=== PATIENT | male | born 2000 | race African-American/Black ===

== ENCOUNTER 2019-06-09 10:51 | Emergency (ER) | payer OTHER ==
[2019-06-09 10:59] VITALS: BP 123/85; PULSE 89; RESP 18; TEMP 97.9
--- NOTE | 2019-06-09 11:13 | ED ---
Wound/Laceration HPI - General Chief Complaint: Wound/Laceration Stated Complaint: Foot laceration Time Seen by Provider: 06/09/19 11:01 Source: patient, EMS, RN notes reviewed Mode of arrival: EMS Limitations: no limitations - History of Present Illness Initial Comments: 18-year-old male presents emergency from chief complaint of right foot laceration. Patient states that something broken in his house and states that he stepped on a piece of glass. Patient states his tetanus is up-to-date. Patient denies paresthesias. Patient states that the bleeding has stopped. Patient offers no other complaints. - Related Data Previous Rx's Medication Instructions Recorded Cephalexin [Keflex] 500 mg PO Q8HR #21 cap 06/09/19 Allergies Allergy/AdvReac Type Severity Reaction Status Date / Time No Known Allergies Allergy Verified 06/09/19 11:20 Review of Systems ROS Statement: Those systems with pertinent positive or pertinent negative responses have been documented in the HPI. ROS Other: All systems not noted in ROS Statement are negative. Past Medical History Past Medical History: No Reported History History of Any Multi-Drug Resistant Organisms: None Reported Past Surgical History: No Surgical Hx Reported Past Psychological History: ADD/ADHD Smoking Status: Never smoker Past Alcohol Use History: None Reported Past Drug Use History: None Reported General Exam Limitations: no limitations General appearance: alert, in no apparent distress Head exam: Present: atraumatic, normocephalic, normal inspection Neck exam: Present: normal inspection, full ROM. Absent: tenderness, meningismus, lymphadenopathy Respiratory exam: Present: normal lung sounds bilaterally. Absent: respiratory distress, wheezes, rales, rhonchi, stridor Cardiovascular Exam: Present: regular rate, normal rhythm, normal heart sounds. Absent: systolic murmur, diastolic murmur, rubs, gallop, clicks Extremities exam: Present: other (Right foot there is a superficial 1 cm laceration with no active bleeding neurovascular intact there is no localized tenderness) Skin exam: Present: warm, dry, intact, normal color. Absent: rash Course Vital Signs 06/09/19 10:52 Temperature 97.9 F Pulse Rate 89 Respiratory 18 Rate Blood Pressure 123/85 O2 Sat by Pulse 99 Oximetry Medical Decision Making - Medical Decision Making 18-year-old male presented for foot laceration. X-rays are negative for fo that there is a risk for infection reading return parameters were discussed.reign body, there is no active bleeding the wound was cleaned, bacitracin applied, patient be discharged and antibiotics we discussed there is no need for closure of the laceration Disposition Clinical Impression: Laceration of right foot Disposition: HOME SELF-CARE Condition: Stable Instructions (If sedation given, give patient instructions): Laceration (ED) Additional Instructions: Please return to the Emergency Department if symptoms worsen or any other concerns. Prescriptions: Cephalexin [Keflex] 500 mg PO Q8HR #21 cap Is patient prescribed a controlled substance at d/c from ED?: No Referrals: None,Stated [Primary Care Provider] - 1-2 days Time of Disposition: 11:28
--- NOTE | 2019-06-09 11:20 | XR ---
EXAMINATION TYPE: XR foot complete RT DATE OF EXAM: 06/09/2019 CLINICAL HISTORY: Possible foreign body/glass near the first or second mid metatarsal. TECHNIQUE: Frontal, lateral, and oblique images of the right foot are obtained. COMPARISON: None FINDINGS: There is no acute fracture/dislocation evident in the right foot. The joint spaces in the right foot appear within normal limits. The overlying soft tissue appears unremarkable. No radiopaq ue foreign body. IMPRESSION: There is no acute fracture or dislocation in the right foot. No radiopaque foreign body.
== END 2019-06-09 11:44 | disposition home or self-care (01) ==
LOC: EC 10:51
DX: S91.311A Laceration without foreign body, right foot, initial encounter (principal); W25.XXXA Contact with sharp glass, initial encounter
CPT/HCPCS: 99283

== ENCOUNTER 2019-08-13 15:10 | Emergency (ER) | payer OTHER ==
[2019-08-13] MEDS ORDERED: ACETAMINOPHEN TAB 325 MG TAB PO STA (15:33)
[2019-08-13] MEDS ORDERED: IBUPROFEN 400 MG TAB PO STA (15:33)
--- NOTE | 2019-08-13 16:01 | XR ---
EXAMINATION TYPE: XR chest 2V DATE OF EXAM: 08/13/2019 COMPARISON: NONE HISTORY: Chest pain TECHNIQUE: Frontal and lateral views of the chest are obtained. FINDINGS: There is no focal air space opacity. No evidence for pneumothorax. No pleural effusion. The cardiac silhouette size is within normal limits. The osseous structures are grossly intact. IMPRESSION: 1. No acute cardiopulmonary process.
--- NOTE | 2019-08-13 16:36 | ED ---
General Adult HPI - General Chief complaint: ENT Stated complaint: Sick Time Seen by Provider: 08/13/19 15:14 Source: patient, family, RN notes reviewed, old records reviewed Mode of arrival: ambulatory Limitations: no limitations - History of Present Illness Initial comments: 18-year-old male patient with no pertinent past medical history presents ED juan f complaint of approximately throat, waxing and waning cough congestion. Patient reports he is fully vaccinated. Denies any other complaints. Systemic: Pt denies fatigue, fever/chills, rash. Pt denies weakness, night sweats, weight loss. Neuro: Pt denies headache, visual disturbances, syncope or pre-syncope. HEENT: Pt denies ocular discharge or irritation, otalgia, rhinorrhea, or notable lymphadenopathy. Cardiopulmonary: Pt denies chest pain, SOB, heart palpitations, dyspnea on exertion. Abdominal/GI: Pt denies abdominal pain, n/v/d. : Pt denies dysuria, burning w/ urination, frequency/urgency. Denies new onset urinary or bowel incontinence. MSK: Pt denies myalgia, loss of strength or function in extremities. Neuro: Pt denies new onset weakness, paresthesias. - Related Data Home Medications Medication Instructions Recorded Confirmed No Known Home Medications 08/13/19 08/13/19 Allergies Allergy/AdvReac Type Severity Reaction Status Date / Time No Known Allergies Allergy Verified 08/13/19 16:19 Review of Systems ROS Statement: Those systems with pertinent positive or pertinent negative responses have been documented in the HPI. ROS Other: All systems not noted in ROS Statement are negative. Past Medical History Past Medical History: No Reported History History of Any Multi-Drug Resistant Organisms: None Reported Past Surgical History: No Surgical Hx Reported Past Psychological History: ADD/ADHD Smoking Status: Never smoker Past Alcohol Use History: None Reported Past Drug Use History: None Reported General Exam - General Exam Comments Initial Comments: Constitutional: NAD, AOX3, Pt has pleasant affect. HEENT: NC/AT, trachea midline, neck supple, no lymphadenopathy. Posterior pharynx non erythematous, without exudates. External ears appear normal, without discharge. TM pale caceres bilaterally. Mucous membranes moist. Eyes PERRLA, EOM intact. There is no scleral icterus. No pallor noted. Cardiopulmonary: RRR, no murmurs, rubs or gallops, no JVD noted. Lungs CTAB in anterior and posterior cool. No peripheral edema. Abdominal exam: Abdomen soft and non-distended. Abdomen non-tender to palpation in all 4 quadrants. Bowel sounds active in LLQ. No hepatosplenomegaly. No ecchymosis Neuro: CN II-XII grossly intact. No nuchal rigidity. No raccon eyes, no painter sign, no hemotympanum. No cervical spinal tenderness. MSK: No posterior calf tenderness bilaterally, homans sign negative bilaterally. Posterior tibialis and radial pulse +2 bilaterally. Sensation intact in upper and lower extremities. Full active ROM in upper and lower extremities, 5/5 stregnth. Limitations: no limitations Course Vital Signs 08/13/19 15:12 Temperature 97.5 F L Pulse Rate 69 Respiratory 20 Rate Blood Pressure 128/77 O2 Sat by Pulse 100 Oximetry Medical Decision Making - Medical Decision Making 18-year-old male patient with no pertinent past medical history presents ED chief complaint of approximately throat, waxing and waning cough congestion. Patient reports he is fully vaccinated. Denies any other complaints. Patient vital signs stable, afebrile. Physical exam did not display acute pathology. Strep negative. Chest x-ray negative. Patient likely experiencing viral syndrome. Patient discharged, follow-up with primary care provider. Return to ER if condition worsens. Case discussed with Dr. Blankenship. - Lab Data Lab Results 08/13/19 Range/Units 15:40 Group A Strep Rapid Negative (Negative) Disposition Clinical Impression: Viral syndrome Disposition: HOME SELF-CARE Condition: Stable Instructions (If sedation given, give patient instructions): Viral Syndrome (ED) Additional Instructions: Patient to adhere to previously discussed treatment plan and will take medication(s) as directed. Patient to follow up with PCP in 1-2 days. Patient to return to ED if symptoms do not improve. Follow-up with primary care provider, return to ER if condition worsens. Is patient prescribed a controlled substance at d/c from ED?: No Referrals: None,Stated [Primary Care Provider] - 1-2 days
[2019-08-13 16:52] VITALS: BP 119/75; PULSE 62; RESP 17; TEMP 97.4
== END 2019-08-13 16:51 | disposition home or self-care (01) ==
LOC: EC 15:10
DX: B34.9 Viral infection, unspecified (principal)
CPT/HCPCS: 71046; 87081; 87430; 99284

== ENCOUNTER 2020-09-18 12:22 | Emergency (ER) | payer OTHER ==
[2020-09-18 12:30] VITALS: RESP 18
--- NOTE | 2020-09-18 13:18 | ED ---
General Adult HPI - General Chief complaint: Back Pain/Injury Stated complaint: ABD pain Time Seen by Provider: 09/18/20 12:28 Source: patient, EMS Mode of arrival: EMS Limitations: no limitations - History of Present Illness Initial comments: 20-year-old male patient presents to the emergency department today for evaluation of rectal pain. Patient states that for the last couple of days he has been having intermittent sharp painful cramps to the rectal region. States her last bowel movement was on 09/14/2020. States that he does have issues with constipation sometimes. Denies any bleeding from the rectum. Denies any abdominal pain. Denies nausea or vomiting. Patient states that he did have a birthday republican on the third and he did have some alcohol and was dancing but denies any injuries or falls. Denies any pain radiating down his legs. Denies numbness or tingling to the lower extremities. Denies loss of bowel or bladder control. Patient denies any recent rash, fever, chills, cough, shortness of breath, chest pain, dizziness, weakness, hematuria, dysuria, urinary urgency, urinary frequency, headache, visual changes, or any other complaints. - Related Data Previous Rx's Medication Instructions Recorded Ibuprofen [Motrin] 800 mg PO TID PRN #30 tab 08/13/19 Allergies Allergy/AdvReac Type Severity Reaction Status Date / Time No Known Allergies Allergy Verified 09/18/20 12:30 Review of Systems ROS Statement: Those systems with pertinent positive or pertinent negative responses have been documented in the HPI. ROS Other: All systems not noted in ROS Statement are negative. Past Medical History Past Medical History: No Reported History History of Any Multi-Drug Resistant Organisms: None Reported Past Surgical History: No Surgical Hx Reported Past Psychological History: ADD/ADHD Smoking Status: Never smoker Past Alcohol Use History: None Reported Past Drug Use History: Marijuana General Exam Limitations: no limitations General appearance: alert, in no apparent distress, other (This is a well- developed, well-nourished adult male patient in no acute distress. Vital signs upon presentation are temperature 97.9F, pulse 91, respirations 18, blood pressure 121/65, pulse ox 97% on room air.) Respiratory exam: Present: normal lung sounds bilaterally. Absent: respiratory distress, wheezes, rales, rhonchi, stridor Cardiovascular Exam: Present: regular rate, normal rhythm, normal heart sounds. Absent: systolic murmur, diastolic murmur, rubs, gallop, clicks GI/Abdominal exam: Present: soft, normal bowel sounds. Absent: distended, tenderness, guarding, rebound, rigid Rectal exam: Present: normal inspection, fecal impaction. Absent: hemorrhoids, tenderness Neurological exam: Present: alert, oriented X3, CN II-XII intact Psychiatric exam: Present: normal affect, normal mood Skin exam: Present: warm, dry, intact, normal color. Absent: rash Course Vital Signs 09/18/20 09/18/20 12:28 14:05 Temperature 97.9 F 98.0 F Pulse Rate 91 79 Respiratory 18 18 Rate Blood Pressure 121/65 118/60 O2 Sat by Pulse 97 97 Oximetry Medical Decision Making - Medical Decision Making 20-year-old male patient presents to the emergency department today for evaluation of rectal pain and cramping. Physical examination revealed a soft nontender abdomen. He is afebrile, vital signs. Rectal exam no evidence for hemorrhoids. Internal exam did reveal large stool ball in the rectum. Patient was given an enema. Did have a large bowel movement while here. He is reporting improvement of symptoms, not currently having any pain. He'll be discharged with his primary care physician for recheck in 1-2 days. We did discuss increasing fiber and fluids in his diet. Return parameters were discussed in detail. He verbalizes understanding and agrees this plan. Disposition Clinical Impression: Rectal pain Disposition: HOME SELF-CARE Condition: Good Instructions (If sedation given, give patient instructions): Constipation (ED), Rectal Pain (ED) Additional Instructions: Increase fiber and fluids in your diet. Increase physical activity. Follow-up through primary care physician for recheck in 1-2 days. Return to the emergency department immediately for any new, worsening, or concerning symptoms. Is patient prescribed a controlled substance at d/c from ED?: No Referrals: None,Stated [Primary Care Provider] - 1-2 days Time of Disposition: 13:57
[2020-09-18 14:06] VITALS: BP 118/60; PULSE 79; TEMP 98
== END 2020-09-18 14:05 | disposition home or self-care (01) ==
LOC: EC 12:22
DX: K62.89 Other specified diseases of anus and rectum (principal); R25.2 Cramp and spasm
CPT/HCPCS: 99284

== ENCOUNTER 2020-09-23 02:57 | Emergency (ER) | payer OTHER ==
--- NOTE | 2020-09-23 03:04 | ED ---
Abdominal Pain HPI - General Stated Complaint: Constipation Time Seen by Provider: 09/23/20 03:02 Source: RN notes reviewed, old records reviewed - History of Present Illness Initial Comments: This is a 20-year-old male DF with history of constipation, coming in with constipation no bowel movement for 2 days. Enema work last time. Patient has no other complaints MD Complaint: abdominal pain -: days(s) Location: diffuse Radiation: none Migration to: no migration Severity: mild Severity scale (1-10): 3 Quality: cramping Consistency: constant Improves With: nothing Worsens With: nothing Associated Symptoms: denies other symptoms - Related Data Home Medications Medication Instructions Recorded Confirmed Docusate [Colace] 200 mg PO DAILY PRN 09/24/20 09/24/20 Magnesium Citrate [Citrate of 296 ml PO DAILY PRN 09/24/20 09/24/20 Magnesia] Naproxen Sodium [Aleve] 220 mg PO DAILY PRN 09/24/20 09/24/20 Probiotic Gummy (Unknown Strength) 1 tab PO DAILY 09/24/20 09/24/20 Allergies Allergy/AdvReac Type Severity Reaction Status Date / Time No Known Allergies Allergy Verified 09/28/20 02:17 Review of Systems ROS Statement: Those systems with pertinent positive or pertinent negative responses have been documented in the HPI. ROS Other: All systems not noted in ROS Statement are negative. Past Medical History Past Medical History: No Reported History History of Any Multi-Drug Resistant Organisms: None Reported Past Surgical History: No Surgical Hx Reported Past Psychological History: ADD/ADHD Smoking Status: Never smoker Past Alcohol Use History: None Reported Past Drug Use History: Marijuana General Exam General appearance: alert, in no apparent distress Head exam: Present: atraumatic, normocephalic, normal inspection Eye exam: Present: normal appearance, PERRL, EOMI. Absent: scleral icterus, conjunctival injection, periorbital swelling ENT exam: Present: normal exam, mucous membranes moist Neck exam: Present: normal inspection. Absent: tenderness, meningismus, lymphadenopathy Respiratory exam: Present: normal lung sounds bilaterally. Absent: respiratory distress, wheezes, rales, rhonchi, stridor Cardiovascular Exam: Present: regular rate, normal rhythm, normal heart sounds. Absent: systolic murmur, diastolic murmur, rubs, gallop, clicks GI/Abdominal exam: Present: soft, normal bowel sounds. Absent: distended, tenderness, guarding, rebound, rigid Extremities exam: Present: normal inspection, full ROM, normal capillary refill. Absent: tenderness, pedal edema, joint swelling, calf tenderness Back exam: Present: normal inspection Neurological exam: Present: alert, oriented X3, CN II-XII intact Psychiatric exam: Present: normal affect, normal mood Skin exam: Present: warm, dry, intact, normal color. Absent: rash Course Vital Signs 09/23/20 03:08 Temperature 98.6 F Pulse Rate 88 Respiratory 16 Rate Blood Pressure 124/78 O2 Sat by Pulse 100 Oximetry - Reevaluation(s) Reevaluation #1: Medical records reviewed Patient has resolution of symptoms here in the ER Patient informed of results results, questions are answered Patient feels good for discharge home Medical Decision Making - Medical Decision Making 20 male with history of constipation abdominal pain. Patient will be treated appropriately can be discharged home - Radiology Data Radiology results: report reviewed (X-ray abdominal series with chest is negative for significant acute disease), image reviewed Disposition Clinical Impression: Constipation, Abdominal pain Disposition: HOME SELF-CARE Instructions (If sedation given, give patient instructions): Abdominal Pain (ED) Is patient prescribed a controlled substance at d/c from ED?: No Referrals: None,Stated [Primary Care Provider] - 1-2 days
[2020-09-23 03:12] VITALS: BP 124/78; PULSE 88; RESP 16; TEMP 98.6
--- NOTE | 2020-09-23 04:10 | XR ---
EXAM: XR Abdomen, 2 Views and XR Chest, 1 View CLINICAL HISTORY: ITS.REASON XR Reason: pain TECHNIQUE: Frontal view of the chest, frontal view of the abdomen/pelvis and upright or decubitus view of the abdomen. COMPARISON: No relevant prior studies available. FINDINGS: Lungs: Unremarkable. No consolidation. Pleural space: Unremarkable. No pneumothorax. Heart: Unremarkable. No cardiomegaly. Mediastinum: Unremarkable. Intraperitoneal space: No free air. Gastrointestinal tract: Unremarkable. No dilation. Bones/joints: Unremarkable. IMPRESSION: Normal chest, abdomen and pelvis x-rays.
[2020-09-23] MEDS ORDERED: GLYCERIN ADULT SUPPOSITORY 1 EACH RECTAL STA (04:40)
[2020-09-23] MEDS ORDERED: DICYCLOMINE 10 MG CAP PO STA (04:40)
[2020-09-23] MEDS ORDERED: MAGNESIUM CITRATE 296 ML BOTTLE PO ONE (04:40)
[2020-09-23] MEDS ORDERED: SENNOSIDES-DOCUSATE SODIUM 1 EACH TAB PO STA (04:40)
[2020-09-23] MEDS ORDERED: IBUPROFEN 400 MG TAB PO STA (04:40)
== END 2020-09-23 05:08 | disposition home or self-care (01) ==
LOC: EC 02:57
DX: K59.00 Constipation, unspecified (principal); F90.9 Attention-deficit hyperactivity disorder, unspecified type
CPT/HCPCS: 74022; 99284

== ENCOUNTER 2020-09-24 18:02 | Emergency (ER) | payer OTHER ==
[2020-09-24 18:12] VITALS: RESP 16
[2020-09-24] MEDS ORDERED: ASPIRIN 81 MG PO STA (18:31)
--- NOTE | 2020-09-24 18:31 | ED ---
Recheck HPI <Jackson Edward - Last Filed: 09/24/20 19:01> - General Source: EMS Mode of arrival: EMS Limitations: no limitations <Omayra Marks - Last Filed: 09/24/20 22:50> - General Chief Complaint: Recheck/Abnormal Lab/Rx Stated Complaint: foreign body in throat Time Seen by Provider: 09/24/20 18:04 - History of Present Illness Initial Comments: 20-year-old male history of marijuana use, ADHD who present today for chief complaint of pain after eating. Patient states around 1:45 PM he was eating a roast beef sandwhich became nauseated he states he developed chest pressure in upper abdomen/lower chest. Patient states it went away. Patient states that he was here yesterday for constipation and told to increase his fiber. Patient states he was eating banana around 4:45 PM when he developed a sensation that was stuck in the upper abdomen lower chest. He states he feels that there is a pressure in the chest in that area like the foot wont go down and its stuck. denies SOB at this time. Denies vomiting, states he has had two loose stools since ysterdays visit. Denies constipation. Denies headaches, fevers. Patient denies cocaine use. Denies known family history of premature CAD or sudden . Denies back pain. Denies jaw or arm pain. Patient states sitting here the pain is 2/10. Patient denies additional complaints. UPon arrival patient does not appear in distress nor diaphoretic. (Omayra Marks) - Related Data Home Medications Medication Instructions Recorded Confirmed Docusate [Colace] 200 mg PO DAILY PRN 09/24/20 09/24/20 Magnesium Citrate [Citrate of 296 ml PO DAILY PRN 09/24/20 09/24/20 Magnesia] Naproxen Sodium [Aleve] 220 mg PO DAILY PRN 09/24/20 09/24/20 Probiotic Gummy (Unknown Strength) 1 tab PO DAILY 09/24/20 09/24/20 Allergies Allergy/AdvReac Type Severity Reaction Status Date / Time No Known Allergies Allergy Verified 09/24/20 18:59 Review of Systems ROS Other: All systems not noted in ROS Statement are negative. <Jackson Edward - Last Filed: 12/12/20 19:01> ROS Other: All systems not noted in ROS Statement are negative. <Omayra Marks - Last Filed: 09/24/20 22:50> ROS Statement: Those systems with pertinent positive or pertinent negative responses have been documented in the HPI. Past Medical History Past Medical History: No Reported History History of Any Multi-Drug Resistant Organisms: None Reported Past Surgical History: No Surgical Hx Reported Past Psychological History: ADD/ADHD Smoking Status: Never smoker Past Alcohol Use History: None Reported Past Drug Use History: Marijuana <SelinaOmayra L - Last Filed: 09/24/20 22:50> General Exam Limitations: no limitations <LouiskaushikAmayaOmayra L - Last Filed: 09/24/20 22:50> - General Exam Comments Initial Comments: General: The patient is awake and alert, in no distress Eye: +3 mm pupils are equal, round and reactive to light, extra-ocular movements are intact. No nystagmus. There is normal conjunctiva bilaterally. No signs of icterus. Ears, nose, mouth and throat: There are moist mucous membranes and no oral lesions. Neck: The neck is supple, there is no tenderness or JVD. Cardiovascular: There is a regular rate and rhythm. No murmur, rub or gallop is appreciated. Respiratory: Lungs are clear to auscultation, respirations are non-labored, breath sounds are equal. No wheezes, stridor, rales, or rhonchi. Gastrointestinal: Soft, non-distended, non-tender abdomen without masses or organomegaly noted. There is no rebound or guarding present. Musculoskeletal: Normal ROM, no tenderness. Strength 5/5. Sensation intact. Radial pulses equal bilaterally 2+. Neurological: A&O x 3. CN II-XII intact grossly, There are no obvious motor or sensory deficits. Coordination appears grossly intact. Speech is normal. Skin: Skin is warm and dry and no rashes or lesions are noted. Psychiatric: Cooperative, appropriate mood & affect, normal judgment. (Omayra Marks) Course <Jackson Edward - Last Filed: 09/24/20 19:01> Vital Signs 09/24/20 09/24/20 09/24/20 18:04 18:12 18:50 Temperature 98.1 F Pulse Rate 74 79 Respiratory 18 16 16 Rate Blood Pressure 130/71 125/76 O2 Sat by Pulse 100 99 Oximetry 09/24/20 09/24/20 09/24/20 18:59 20:45 21:50 Temperature 98.0 F 97.8 F Pulse Rate 74 78 82 Respiratory 16 16 16 Rate Blood Pressure 136/83 98/67 124/82 O2 Sat by Pulse 100 98 98 Oximetry 09/24/20 22:35 Temperature 97.7 F Pulse Rate 78 Respiratory 16 Rate Blood Pressure 128/72 O2 Sat by Pulse 100 Oximetry - Reevaluation(s) Reevaluation #1: 09/24/201834 Case discussed with cardiology regarding EKG changes, Dr. Salcido. Recommends repeat EKG, lab testing including troponin. NO As[employer]er [employer] Frame activation at this time. (Jackson Edward) Reevaluation #2: 09/24/201855 Case again discussed with Dr. Salcido, will await troponin testing prior to any other treatment. (Jackson Edward) Medical Decision Making - Lab Data Result diagrams: 09/24/20 18:40 <Jackson Edward - Last Filed: 09/24/20 19:01> - Lab Data Result diagrams: 09/24/20 18:40 09/24/20 18:40 <Omayra Marks - Last Filed: 09/24/20 22:50> - Medical Decision Making EKG has ST elevation vs early repolarization, sent to cardiology x2 who did not feel this was ST elevationmore so early repolarization. troponin (-) x 2. pt eating/drinking no regurgitation/vomiting. patient does not appear in distress. vs stable. case discussed in detail with attending who is agreeable to discharge with pcp f/u. pt agreeable to return for worsening symptoms. (Omayra Marks) - Lab Data Lab Results 09/24/20 09/24/20 09/24/20 Range/Units 18:40 18:40 18:40 WBC 4.3 (3.8-10.6) k/uL RBC 5.33 (4.30-5.90) m/uL Hgb 14.7 (13.0-17.5) gm/dL Hct 45.4 (39.0-53.0) % MCV 85.1 (80.0-100.0) fL MCH 27.5 (25.0-35.0) pg MCHC 32.3 (31.0-37.0) g/dL RDW 12.5 (11.5-15.5) % Plt Count 292 (150-450) k/uL MPV 6.5 Neutrophils % 61 % Lymphocytes % 32 % Monocytes % 3 % Eosinophils % 2 % Basophils % 0 % Neutrophils # 2.6 (1.3-7.7) k/uL Lymphocytes # 1.4 (1.0-4.8) k/uL Monocytes # 0.1 (0-1.0) k/uL Eosinophils # 0.1 (0-0.7) k/uL Basophils # 0.0 (0-0.2) k/uL PT 11.1 (9.0-12.0) sec INR 1.1 (<1.2) APTT 24.2 (22.0-30.0) sec Sodium 137 (137-145) mmol/L Potassium 4.5 (3.5-5.1) mmol/L Chloride 101 (98-107) mmol/L Carbon Dioxide 27 (22-30) mmol/L Anion Gap 9 mmol/L BUN 11 (9-20) mg/dL Creatinine 0.83 (0.66-1.25) mg/dL Est GFR (CKD-EPI)AfAm >90 (>60 ml/min/1.73 sqM) Est GFR (CKD-EPI)NonAf >90 (>60 ml/min/1.73 sqM) Glucose 96 (74-99) mg/dL Calcium 10.0 (8.4-10.2) mg/dL Magnesium 2.2 (1.6-2.3) mg/dL Total Bilirubin 1.6 H (0.2-1.3) mg/dL AST 29 (17-59) U/L ALT 18 (4-49) U/L Alkaline Phosphatase 44 (38-126) U/L Troponin I (0.000-0.034) ng/mL Total Protein 8.2 (6.3-8.2) g/dL Albumin 5.1 H (3.5-5.0) g/dL Lipase 18 L (23-300) U/L 09/24/20 09/24/20 Range/Units 18:40 21:09 WBC (3.8-10.6) k/uL RBC (4.30-5.90) m/uL Hgb (13.0-17.5) gm/dL Hct (39.0-53.0) % MCV (80.0-100.0) fL MCH (25.0-35.0) pg MCHC (31.0-37.0) g/dL RDW (11.5-15.5) % Plt Count (150-450) k/uL MPV Neutrophils % % Lymphocytes % % Monocytes % % Eosinophils % % Basophils % % Neutrophils # (1.3-7.7) k/uL Lymphocytes # (1.0-4.8) k/uL Monocytes # (0-1.0) k/uL Eosinophils # (0-0.7) k/uL Basophils # (0-0.2) k/uL PT (9.0-12.0) sec INR (<1.2) APTT (22.0-30.0) sec Sodium (137-145) mmol/L Potassium (3.5-5.1) mmol/L Chloride (98-107) mmol/L Carbon Dioxide (22-30) mmol/L Anion Gap mmol/L BUN (9-20) mg/dL Creatinine (0.66-1.25) mg/dL Est GFR (CKD-EPI)AfAm (>60 ml/min/1.73 sqM) Est GFR (CKD-EPI)NonAf (>60 ml/min/1.73 sqM) Glucose (74-99) mg/dL Calcium (8.4-10.2) mg/dL Magnesium (1.6-2.3) mg/dL Total Bilirubin (0.2-1.3) mg/dL AST (17-59) U/L ALT (4-49) U/L Alkaline Phosphatase (38-126) U/L Troponin I <0.012 <0.012 (0.000-0.034) ng/mL Total Protein (6.3-8.2) g/dL Albumin (3.5-5.0) g/dL Lipase (23-300) U/L Disposition <Jackson Edward - Last Filed: 09/24/20 19:01> Is patient prescribed a controlled substance at d/c from ED?: No Time of Disposition: 22:29 <Omayra Marks - Last Filed: 09/24/20 22:50> Clinical Impression: Sensation of foreign body in esophagus, Chest discomfort Disposition: HOME SELF-CARE Condition: Good Instructions (If sedation given, give patient instructions): Indigestion (ED) Additional Instructions: Please use medication as discussed. Please follow-up with family doctor in the next 2 days. Please return to emergency room if the symptoms increase or worsen or for any other concerns. Referrals: Chucky Graf MD [Primary Care Provider] - 1-2 days
[2020-09-24 18:48] LABS: Basophils % (A) 0 %; Eosinophils # (A) 0.1 k/uL (0-0.7); Eosinophils % (A) 2 %; HCT 45.4 % (39.0-53.0); HGB 14.7 gm/dL (13.0-17.5); Lymphocytes # (A) 1.4 k/uL (1.0-4.8); Lymphocytes % (A) 32 %; MCH 27.5 pg (25.0-35.0); MCHC 32.3 g/dL (31.0-37.0); MCV 85.1 fL (80.0-100.0); Mean Platelet Volume 6.5; Monocytes # (A) 0.1 k/uL (0-1.0); Monocytes % (A) 3 %; Neutrophils # (A) 2.6 k/uL (1.3-7.7); Neutrophils % (A) 61 %; Platelet Count 292 k/uL (150-450); RBC 5.33 m/uL (4.30-5.90); RDW 12.5 % (11.5-15.5); WBC 4.3 k/uL (3.8-10.6)
--- NOTE | 2020-09-24 18:48 | XR ---
EXAMINATION TYPE: XR chest 2V DATE OF EXAM: 09/24/2020 COMPARISON: 08/13/2019. HISTORY: Chest pain. TECHNIQUE: Frontal and lateral views of the chest are obtained. FINDINGS: There is no focal air space opacity, pleural effusion, or pneumothorax seen. The cardiac silhouette size is within normal limits. The osseous structures are intact. IMPRESSION: No acute cardiopulmonary process.
[2020-09-24] MEDS ORDERED: NITROGLYCERIN SL TABS 0.4 MG TAB SUBLINGUAL STA (18:52)
[2020-09-24 19:10] LABS: ALT 18 U/L (4-49); AST 29 U/L (17-59); African American GFR (CKD) >90 (>60 ml/min/1.73 sqM); Albumin 5.1 g/dL (3.5-5.0); Alkaline Phosphatase 44 U/L (38-126); Anion Gap 9 mmol/L; Blood Urea Nitrogen 11 mg/dL (9-20); Carbon Dioxide 27 mmol/L (22-30); Chloride 101 mmol/L (98-107); Glucose 96 mg/dL (74-99); Lipase 18 U/L (23-300); Magnesium 2.2 mg/dL (1.6-2.3); Non-African American GFR(CKD) >90 (>60 ml/min/1.73 sqM); Potassium 4.5 mmol/L (3.5-5.1); Sodium 137 mmol/L (137-145); Total Bilirubin 1.6 mg/dL (0.2-1.3); Total Protein 8.2 g/dL (6.3-8.2)
[2020-09-24 19:21] LABS: INR 1.1 (<1.2); Partial Thromboplastin Time 24.2 sec (22.0-30.0); Prothrombin Time 11.1 sec (9.0-12.0)
[2020-09-24 22:41] VITALS: BP 128/72; PULSE 78; TEMP 97.7
== END 2020-09-24 22:35 | disposition home or self-care (01) ==
LOC: EC 18:02
DX: R07.89 Other chest pain (principal); R19.8 Other specified symptoms and signs involving the digestive system and abdomen
CPT/HCPCS: 36415; 71046; 80053; 83690; 83735; 84484; 85025; 85610; 85730; 93005; 99284

== ENCOUNTER 2020-09-28 02:13 | Emergency (ER) | payer OTHER ==
[2020-09-28] MEDS ORDERED: MAG HYDROX/AL HYDROX/SIMETH 30 ML, HYOSCYAMINE ELIXIR 10 ML, LIDOCAINE VISCOUS 2% 10 ML PO STA ×3 (02:29)
--- NOTE | 2020-09-28 02:32 | ED ---
General Adult HPI - General Source: patient Mode of arrival: ambulatory Limitations: no limitations <Roxane Benavides - Last Filed: 09/28/20 02:46> <Jaylen Orourke - Last Filed: 09/28/20 03:44> - General Chief complaint: Chest Pain Stated complaint: Chest Pain Time Seen by Provider: 09/28/20 02:20 - History of Present Illness Initial comments: 20-year-old male patient presents to the emergency department today for evaluation of substernal chest pain. Patient states when the pain comes on he has pain down the right arm. States that sometimes the pain comes on when he eats. Denies any nausea or vomiting. Denies shortness of breath. States that he has had pain intermittently over the last 3 days. He denies any significant past medical history. He is unaware of any significant cardiac disease in his fa thalia or any history of sudden unexplained in his family. Denies smoking cigarettes. States that he recently turned 20 and did have a libertarian on his birthday, states he has been feeling unwell since then. Patient denies any recent rash, fever, chills, cough, abdominal pain, nausea, vomiting, diarrhea, constipation, back pain, numbness, tingling, dizziness, weakness, hematuria, dysuria, urinary urgency, urinary frequency, headache, visual changes, or any other complaints. (Roxane Benavides) - Related Data Home Medications Medication Instructions Recorded Confirmed Docusate [Colace] 200 mg PO DAILY PRN 09/24/20 09/24/20 Magnesium Citrate [Citrate of 296 ml PO DAILY PRN 09/24/20 09/24/20 Magnesia] Naproxen Sodium [Aleve] 220 mg PO DAILY PRN 09/24/20 09/24/20 Probiotic Gummy (Unknown Strength) 1 tab PO DAILY 09/24/20 09/24/20 Allergies Allergy/AdvReac Type Severity Reaction Status Date / Time No Known Allergies Allergy Verified 09/28/20 02:17 Review of Systems ROS Other: All systems not noted in ROS Statement are negative. <Roxane Benavides - Last Filed: 09/28/20 02:46> ROS Other: All systems not noted in ROS Statement are negative. <Jaylen Orourke - Last Filed: 09/28/20 03:44> ROS Statement: Those systems with pertinent positive or pertinent negative responses have been documented in the HPI. Past Medical History Past Medical History: No Reported History History of Any Multi-Drug Resistant Organisms: None Reported Past Surgical History: No Surgical Hx Reported Past Psychological History: ADD/ADHD Smoking Status: Never smoker Past Alcohol Use History: None Reported Past Drug Use History: Marijuana <Roxane Benavides - Last Filed: 09/28/20 02:46> General Exam Limitations: no limitations General appearance: alert, in no apparent distress, other (This is a well- developed, well-nourished adult male patient in no acute distress. Vital signs upon presentation are temperature 98.6F, pulse 80, respirations 18, blood pressure 126/74, pulse ox 99% on room air.) ENT exam: Present: normal exam, normal oropharynx, mucous membranes moist Respiratory exam: Present: normal lung sounds bilaterally. Absent: respiratory distress, wheezes, rales, rhonchi, stridor Cardiovascular Exam: Present: regular rate, normal rhythm, normal heart sounds. Absent: systolic murmur, diastolic murmur, rubs, gallop, clicks GI/Abdominal exam: Present: soft, normal bowel sounds. Absent: distended, tenderness, guarding, rebound, rigid Neurological exam: Present: alert, oriented X3, CN II-XII intact Psychiatric exam: Present: normal affect, normal mood Skin exam: Present: warm, dry, intact, normal color. Absent: rash <Roxane Benavides - Last Filed: 09/28/20 02:46> Course Vital Signs 09/28/20 02:14 Temperature 98.6 F Pulse Rate 80 Respiratory 18 Rate Blood Pressure 126/74 O2 Sat by Pulse 99 Oximetry EKG Findings - EKG Comments: EKG Findings:: EKG obtained at 12 08 shows normal sinus rhythm with a short OH interval, there may be some early repolarization. Ventricular rate is 67, OH 106, QRS duration 72, QT 354, QTC 374. <Roxane Benavides - Last Filed: 09/28/20 02:46> Medical Decision Making <Roxane Benavides - Last Filed: 09/28/20 02:46> - Lab Data Result diagrams: 09/28/20 02:51 09/28/20 02:51 <Jaylen Orourke - Last Filed: 09/28/20 03:44> - Medical Decision Making 20-year-old male patient presented to the emergency department today for evaluation of substernal chest pain with right arm pain. Physical examination a clear equal lung sounds. Pain was not reproducible palpation. EKG was obtained showed normal sinus rhythm. Labs and chest x-ray are pending. Care will be handed over to my attending Dr. Orourke at 0300. (Roxane Benavides) - Lab Data Lab Results 09/28/20 09/28/20 09/28/20 Range/Units 02:51 02:51 02:51 WBC 4.2 (3.8-10.6) k/uL RBC 4.71 (4.30-5.90) m/uL Hgb 13.5 (13.0-17.5) gm/dL Hct 40.0 (39.0-53.0) % MCV 84.9 (80.0-100.0) fL MCH 28.7 (25.0-35.0) pg MCHC 33.8 (31.0-37.0) g/dL RDW 12.0 (11.5-15.5) % Plt Count 295 (150-450) k/uL MPV 6.6 Neutrophils % 39 % Lymphocytes % 52 % Monocytes % 3 % Eosinophils % 2 % Basophils % 1 % Neutrophils # 1.6 (1.3-7.7) k/uL Lymphocytes # 2.2 (1.0-4.8) k/uL Monocytes # 0.1 (0-1.0) k/uL Eosinophils # 0.1 (0-0.7) k/uL Basophils # 0.1 (0-0.2) k/uL Sodium 137 (137-145) mmol/L Potassium 3.9 (3.5-5.1) mmol/L Chloride 104 (98-107) mmol/L Carbon Dioxide 27 (22-30) mmol/L Anion Gap 6 mmol/L BUN 13 (9-20) mg/dL Creatinine 0.90 (0.66-1.25) mg/dL Est GFR (CKD-EPI)AfAm >90 (>60 ml/min/1.73 sqM) Est GFR (CKD-EPI)NonAf >90 (>60 ml/min/1.73 sqM) Glucose 109 H (74-99) mg/dL Calcium 9.4 (8.4-10.2) mg/dL Total Bilirubin 1.1 (0.2-1.3) mg/dL AST 27 (17-59) U/L ALT 19 (4-49) U/L Alkaline Phosphatase 53 (38-126) U/L Troponin I <0.012 (0.000-0.034) ng/mL Total Protein 7.1 (6.3-8.2) g/dL Albumin 4.5 (3.5-5.0) g/dL Disposition <Roxane Benavides - Last Filed: 09/28/20 02:46> Is patient prescribed a controlled substance at d/c from ED?: No <Jaylen Orourke - Last Filed: 09/28/20 03:44> Clinical Impression: Chest pain Disposition: HOME SELF-CARE Condition: Good Instructions (If sedation given, give patient instructions): Chest Pain (ED) Referrals: None,Stated [Primary Care Provider] - 1-2 days
[2020-09-28 02:57] LABS: Basophils # (A) 0.1 k/uL (0-0.2); Basophils % (A) 1 %; Eosinophils # (A) 0.1 k/uL (0-0.7); Eosinophils % (A) 2 %; HGB 13.5 gm/dL (13.0-17.5); Lymphocytes # (A) 2.2 k/uL (1.0-4.8); Lymphocytes % (A) 52 %; MCH 28.7 pg (25.0-35.0); MCHC 33.8 g/dL (31.0-37.0); MCV 84.9 fL (80.0-100.0); Mean Platelet Volume 6.6; Monocytes # (A) 0.1 k/uL (0-1.0); Monocytes % (A) 3 %; Neutrophils # (A) 1.6 k/uL (1.3-7.7); Neutrophils % (A) 39 %; Platelet Count 295 k/uL (150-450); RBC 4.71 m/uL (4.30-5.90); WBC 4.2 k/uL (3.8-10.6)
--- NOTE | 2020-09-28 03:09 | XR ---
EXAM: XR Chest, 2 Views CLINICAL HISTORY: Chest pain TECHNIQUE: Frontal and lateral views of the chest. COMPARISON: Chest x-ray dated 09/24/2020 FINDINGS: Lungs: Unremarkable. Pleural space: Unremarkable. Heart: Unremarkable. Mediastinum: Unremarkable. Bones/joints: Unremarkable. IMPRESSION: Normal chest x-rays.
[2020-09-28 03:10] LABS: ALT 19 U/L (4-49); AST 27 U/L (17-59); African American GFR (CKD) >90 (>60 ml/min/1.73 sqM); Albumin 4.5 g/dL (3.5-5.0); Alkaline Phosphatase 53 U/L (38-126); Anion Gap 6 mmol/L; Blood Urea Nitrogen 13 mg/dL (9-20); Calcium 9.4 mg/dL (8.4-10.2); Carbon Dioxide 27 mmol/L (22-30); Chloride 104 mmol/L (98-107); Glucose 109 mg/dL (74-99); Non-African American GFR(CKD) >90 (>60 ml/min/1.73 sqM); Potassium 3.9 mmol/L (3.5-5.1); Sodium 137 mmol/L (137-145); Total Bilirubin 1.1 mg/dL (0.2-1.3); Total Protein 7.1 g/dL (6.3-8.2)
[2020-09-28 04:14] VITALS: BP 113/79; PULSE 66; RESP 18; TEMP 97.6
== END 2020-09-28 04:08 | disposition home or self-care (01) ==
LOC: EC 02:13
DX: R07.9 Chest pain, unspecified (principal)
CPT/HCPCS: 36415; 71046; 80053; 84484; 85025; 93005; 99285

== ENCOUNTER 2020-10-01 10:09 | Emergency (ER) | payer OTHER ==
[2020-10-01 10:17] VITALS: BP 125/81; PULSE 73; RESP 18; TEMP 98
[2020-10-01] MEDS ORDERED: dexAMETHasone 2 MG TAB PO STA (10:32)
[2020-10-01] MEDS ORDERED: ACETAMINOPHEN TAB 500 MG TAB PO STA (10:33)
--- NOTE | 2020-10-01 10:35 | ED ---
ENT HPI - General Chief complaint: ENT Stated complaint: Sore Throat Time Seen by Provider: 10/01/20 10:19 Source: patient, RN notes reviewed, old records reviewed Mode of arrival: ambulatory Limitations: no limitations - History of Present Illness Initial comments: 20-year-old male presents emergency department today with sore throat and some pain with swallowing for the past 2 days. Patient was seen in emergency department multiple times for chest pain. He reports this done this week and is not having chest pain this time. Denies cough. Denies fever. Patient states that he has not been tested for Covid 19 infection at this time. Patient reports that he is able to still tolerate his secretions and swallow liquids and food however just discomforting the back of his throat. Patient had received childhood immunizations. - Related Data Home Medications Medication Instructions Recorded Confirmed busPIRone HCL 5 mg PO TID PRN 10/01/20 10/01/20 Previous Rx's Medication Instructions Recorded Azithromycin [Zithromax Z-pack (6 250 mg PO DIRECTED #6 tab 10/01/20 tabs)] predniSONE [Deltasone] 20 mg PO DIRECTED #12 tab 10/01/20 Allergies Allergy/AdvReac Type Severity Reaction Status Date / Time No Known Allergies Allergy Verified 10/01/20 10:57 Review of Systems ROS Statement: Those systems with pertinent positive or pertinent negative responses have been documented in the HPI. ROS Other: All systems not noted in ROS Statement are negative. Past Medical History Past Medical History: No Reported History History of Any Multi-Drug Resistant Organisms: None Reported Past Surgical History: No Surgical Hx Reported Past Psychological History: ADD/ADHD Smoking Status: Never smoker Past Alcohol Use History: None Reported Past Drug Use History: Marijuana General Exam - General Exam Comments Initial Comments: 20-year-old male. Alert and oriented 3. Limitations: no limitations General appearance: alert, in no apparent distress Head exam: Present: atraumatic, normocephalic, normal inspection Eye exam: Present: normal appearance, PERRL, EOMI. Absent: scleral icterus, conjunctival injection, periorbital swelling ENT exam: Present: normal exam, mucous membranes moist. Absent: normal oropharynx (Patient has erythematous oropharynx and swelling and swollen uvula. No significant exudates noted. No significant adenopathy.) Neck exam: Present: normal inspection Respiratory exam: Present: normal lung sounds bilaterally. Absent: respiratory distress, wheezes, rales, rhonchi, stridor Cardiovascular Exam: Present: regular rate GI/Abdominal exam: Present: soft, normal bowel sounds. Absent: distended, tenderness, guarding, rebound, rigid Extremities exam: Present: normal inspection, full ROM, normal capillary refill. Absent: tenderness, pedal edema, joint swelling, calf tenderness Back exam: Present: normal inspection Neurological exam: Present: alert, oriented X3, CN II-XII intact Psychiatric exam: Present: normal affect, normal mood Skin exam: Present: warm, dry, intact, normal color. Absent: rash Course Vital Signs 10/01/20 10:14 Temperature 98.0 F Pulse Rate 73 Respiratory 18 Rate Blood Pressure 125/81 O2 Sat by Pulse 100 Oximetry Medical Decision Making - Medical Decision Making 20-year-old male presents emergency of difficulty swallowing due to sore throat for the past 2 days. Patient at this time his swollen uvula. No signs of significant exudates. Patient was given rapid strep test which was negative. Coronavirus testing is pending. Patient has no fever at this time. He was given Decadron swelling. I discussed likely viral process infectious etiology that. At this time Patient will be started on medication help with swelling irritation for uvulitis. Discussed return parameters. He did receive all of his childhood immunizations. He is able to tolerate liquids and emergency department and swallow pills and eat. He has no signs of respiratory distress and otherwise appears clinically well. - Lab Data Lab Results 10/01/20 Range/Units 10:45 Group A Strep Rapid Negative (Negative) Disposition Clinical Impression: Uvulitis Disposition: HOME SELF-CARE Condition: Good Instructions (If sedation given, give patient instructions): Uvulitis (ED) Additional Instructions: Rest, increase fluid intake. Use medication as prescribed. Follow-up with PCP. Return to the ED if any alarming signs or symptoms occur. If your Covid test is positive we will call you in 5 days. Prescriptions: predniSONE [Deltasone] 20 mg PO DIRECTED #12 tab Azithromycin [Zithromax Z-pack (6 tabs)] 250 mg PO DIRECTED #6 tab Is patient prescribed a controlled substance at d/c from ED?: No Referrals: Chucky Graf MD [Primary Care Provider] - 1-2 days Time of Disposition: 11:28
== END 2020-10-01 11:38 | disposition home or self-care (01) ==
LOC: EC 10:09
DX: K12.2 Cellulitis and abscess of mouth (principal)
CPT/HCPCS: 87081; 87430; 99283; U0003; J8540

== ENCOUNTER 2020-10-05 22:54 | Emergency (ER) | payer OTHER ==
[2020-10-05 22:59] VITALS: BP 133/79; PULSE 92; RESP 20; TEMP 98.1
[2020-10-05] MEDS ORDERED: DOCUSATE 283 MG/5 ML ENEMA RECTAL STA (23:32)
--- NOTE | 2020-10-05 23:35 | ED ---
General Adult HPI - General Chief complaint: Abdominal Pain Stated complaint: Constipation Time Seen by Provider: 10/05/20 23:01 Source: patient Mode of arrival: ambulatory Limitations: no limitations - History of Present Illness Initial comments: 20-year-old male patient presents to the emergency department today for evaluation of constipation. Patient states that he hasn't had a bowel movement in the last 5 days. Patient states that he can feel the urge to go and feels some rectal discomfort but is unable to get the stool out. Denies any abdominal pain, nausea, or vomiting. Denies fever or chills. Denies any bloody stools. States he did attempt to take an oral laxative which did not help. Patient denies any recent rash, cough, shortness of breath, chest pain, back pain, numbness, tingling, dizziness, weakness, hematuria, dysuria, urinary urgency, urinary frequency, headache, visual changes, or any other complaints. - Related Data Home Medications Medication Instructions Recorded Confirmed busPIRone HCL 5 mg PO TID PRN 10/01/20 10/05/20 Azithromycin [Zithromax Z-pack (6 See Taper PO DAILY 10/05/20 10/05/20 tabs)] predniSONE [Deltasone] See Taper PO DAILY 10/05/20 10/05/20 Previous Rx's Medication Instructions Recorded polyethylene glycoL 3350 [Miralax] 17 gm PO DAILY #30 packet 10/06/20 Allergies Allergy/AdvReac Type Severity Reaction Status Date / Time No Known Allergies Allergy Verified 10/05/20 23:38 Review of Systems ROS Statement: Those systems with pertinent positive or pertinent negative responses have been documented in the HPI. ROS Other: All systems not noted in ROS Statement are negative. Past Medical History Past Medical History: No Reported History Additional Past Medical History / Comment(s): constipation History of Any Multi-Drug Resistant Organisms: None Reported Past Surgical History: No Surgical Hx Reported Past Psychological History: ADD/ADHD Smoking Status: Never smoker Past Alcohol Use History: None Reported Past Drug Use History: Marijuana General Exam Limitations: no limitations General appearance: alert, in no apparent distress, other (Physical well- developed, well-nourished adult male patient in no acute distress. Vital signs upon presentation are temperature 98.1F, pulse 92, respirations 20, blood pressure 133/79, pulse ox 99% on room air.) Respiratory exam: Present: normal lung sounds bilaterally. Absent: respiratory distress, wheezes, rales, rhonchi, stridor Cardiovascular Exam: Present: regular rate, normal rhythm, normal heart sounds. Absent: systolic murmur, diastolic murmur, rubs, gallop, clicks Neurological exam: Present: alert, oriented X3, CN II-XII intact Psychiatric exam: Present: normal affect, normal mood Skin exam: Present: warm, dry, intact, normal color. Absent: rash Course Vital Signs 10/05/20 22:57 Temperature 98.1 F Pulse Rate 92 Respiratory 20 Rate Blood Pressure 133/79 O2 Sat by Pulse 99 Oximetry Medical Decision Making - Medical Decision Making 20-year-old male patient presents to the emergency department today complaining of constipation. States he hasn't had a bowel movement in the last 5 days. Patient has been freely coming to the emergency department for similar type symptoms. Denies any abdominal pain. Abdomen soft and nontender. Patient was given a Therevac enema did have a small bowel movement. States he is feeling better. He'll be discharged with prescription for MiraLAX. He is instructed to follow-up with his primary care physician for recheck in 1-2 days. Return parameters were discussed in detail. He verbalizes understanding and agrees with this plan. Disposition Clinical Impression: Decreased frequency of bowel movements Disposition: HOME SELF-CARE Condition: Good Instructions (If sedation given, give patient instructions): Constipation (ED) Additional Instructions: Take medications as directed. Increase fluids and physical activity. Follow-up through primary care physician for recheck in 1-2 days. Return to the emergency department for any new, worsening, or concerning symptoms. Prescriptions: polyethylene glycoL 3350 [Miralax] 17 gm PO DAILY #30 packet Is patient prescribed a controlled substance at d/c from ED?: No Referrals: Chucky Graf MD [Primary Care Provider] - 1-2 days Time of Disposition: 01:07
== END 2020-10-06 01:16 | disposition home or self-care (01) ==
LOC: EC 22:54
DX: R19.4 Change in bowel habit (principal)
CPT/HCPCS: 99283

== ENCOUNTER 2020-10-15 19:34 | Emergency (ER) | payer OTHER ==
[2020-10-15] MEDS ORDERED: KETOROLAC 15 MG/ML 1 ML VIAL IVP STA (19:54)
[2020-10-15] MEDS ORDERED: SODIUM CHLORIDE 0.9% 1,000 ML IV STA (19:54)
[2020-10-15] MEDS ORDERED: LACTULOSE 20 GM/30 ML CUP PO ONE (20:04)
--- NOTE | 2020-10-15 20:08 | ED ---
Abdominal Pain HPI - General Chief Complaint: Abdominal Pain Stated Complaint: Constipation Time Seen by Provider: 10/15/20 19:52 Source: patient Mode of arrival: ambulatory Limitations: no limitations - History of Present Illness Initial Comments: 20-year-old male with history of constipation presenting to emergency department with a chief complaint of constipation. Patient states that the last time he has had a bowel movement was 4 days ago. Patient states that he was eating pizza rolls and plenty of cheese which causes constipation. Patient states she continues to cheese because "tastes good". He states over the last 2 days there has been a developing diffuse abdominal pain that is cramping in nature and comes and goes. He denies any nausea vomiting diarrhea. States he can feel the feces near the rectum but he cannot expel it. States that he was previously evaluated for the same issue about one month ago and an enema worked well for him. States she was discharged with MiraLAX which has not been controlling his symptoms. Patient states she has an appointment scheduled with a GI specialist for colonoscopy on October 25. Denies any night sweats fevers or chills. Denies chest pain shortness of breath or back pain. Denies hematuria, hematochezia or melena. Denies any testicular swelling, penile discharge. - Related Data Home Medications Medication Instructions Recorded Confirmed busPIRone HCL 5 mg PO TID PRN 10/01/20 10/05/20 Azithromycin [Zithromax Z-pack (6 See Taper PO DAILY 10/05/20 10/05/20 tabs)] predniSONE [Deltasone] See Taper PO DAILY 10/05/20 10/05/20 Previous Rx's Medication Instructions Recorded polyethylene glycoL 3350 [Miralax] 17 gm PO DAILY #30 packet 10/06/20 Allergies Allergy/AdvReac Type Severity Reaction Status Date / Time No Known Allergies Allergy Verified 10/05/20 23:38 Review of Systems ROS Statement: Those systems with pertinent positive or pertinent negative responses have been documented in the HPI. ROS Other: All systems not noted in ROS Statement are negative. Past Medical History Past Medical History: No Reported History Additional Past Medical History / Comment(s): constipation History of Any Multi-Drug Resistant Organisms: None Reported Past Surgical History: No Surgical Hx Reported Past Psychological History: ADD/ADHD, Anxiety Smoking Status: Current some day smoker Past Alcohol Use History: None Reported Past Drug Use History: Marijuana General Exam Limitations: no limitations General appearance: alert, in no apparent distress Head exam: Present: atraumatic, normocephalic, normal inspection Eye exam: Present: normal appearance, PERRL, EOMI Pupils: Present: normal accommodation ENT exam: Present: normal exam, normal oropharynx, mucous membranes moist, TM's normal bilaterally, normal external ear exam Neck exam: Present: normal inspection, full ROM. Absent: tenderness Respiratory exam: Present: normal lung sounds bilaterally. Absent: respiratory distress, wheezes, rales, rhonchi, stridor Cardiovascular Exam: Present: regular rate, normal rhythm, normal heart sounds. Absent: systolic murmur, diastolic murmur GI/Abdominal exam: Present: soft, tenderness (Mild, diffuse abdominal tenderness .), normal bowel sounds. Absent: distended, guarding, rebound, rigid, hyperactive bowel sounds Extremities exam: Present: normal inspection, full ROM, normal capillary refill. Absent: tenderness, pedal edema, joint swelling Back exam: Present: normal inspection, full ROM. Absent: tenderness, CVA tenderness (R), CVA tenderness (L), muscle spasm, paraspinal tenderness, vertebral tenderness Neurological exam: Present: alert, oriented X3, normal gait Psychiatric exam: Present: normal affect, normal mood Skin exam: Present: warm, dry, intact, normal color Course Vital Signs 10/15/20 10/15/20 19:42 22:05 Temperature 98.7 F 97.6 F Pulse Rate 78 82 Respiratory 19 16 Rate Blood Pressure 134/79 138/72 O2 Sat by Pulse 98 99 Oximetry Medical Decision Making - Medical Decision Making 20-year-old male with history of constipation presenting to emergency Department with a chief complaint of constipation. On physical examination, patient has diffuse, mild abdominal pain. KUB reveals increased stool burden compared to most recent imaging. CBC CMP unremarkable. Patient was given milk of molasses enema. Patient was able to have a large bowel movement reports significant improvement in symptoms. Patient advised to stop eating dairy products which could be contributing to his constipation symptoms. Patient advised to high- fiber diet. He was also advised to begin taking stool softeners. Return parameters discussed the patient was understanding agreeable. Case discussed with physician. - Lab Data Result diagrams: 10/15/20 20:17 10/15/20 20:17 Lab Results 10/15/20 10/15/20 Range/Units 20:17 20:17 WBC 4.7 (3.8-10.6) k/uL RBC 5.18 (4.30-5.90) m/uL Hgb 14.4 (13.0-17.5) gm/dL Hct 44.2 (39.0-53.0) % MCV 85.4 (80.0-100.0) fL MCH 27.8 (25.0-35.0) pg MCHC 32.6 (31.0-37.0) g/dL RDW 12.7 (11.5-15.5) % Plt Count 266 (150-450) k/uL MPV 6.4 Neutrophils % 49 % Lymphocytes % 42 % Monocytes % 5 % Eosinophils % 1 % Basophils % 0 % Neutrophils # 2.3 (1.3-7.7) k/uL Lymphocytes # 2.0 (1.0-4.8) k/uL Monocytes # 0.2 (0-1.0) k/uL Eosinophils # 0.1 (0-0.7) k/uL Basophils # 0.0 (0-0.2) k/uL Sodium 137 (137-145) mmol/L Potassium 4.3 (3.5-5.1) mmol/L Chloride 104 (98-107) mmol/L Carbon Dioxide 28 (22-30) mmol/L Anion Gap 5 mmol/L BUN 12 (9-20) mg/dL Creatinine 0.75 (0.66-1.25) mg/dL Est GFR (CKD-EPI)AfAm >90 (>60 ml/min/1.73 sqM) Est GFR (CKD-EPI)NonAf >90 (>60 ml/min/1.73 sqM) Glucose 93 (74-99) mg/dL Calcium 9.7 (8.4-10.2) mg/dL Total Bilirubin 1.1 (0.2-1.3) mg/dL AST 28 (17-59) U/L ALT 33 (4-49) U/L Alkaline Phosphatase 61 (38-126) U/L Total Protein 7.5 (6.3-8.2) g/dL Albumin 4.8 (3.5-5.0) g/dL Disposition Clinical Impression: Constipation, Abdominal pain Disposition: HOME SELF-CARE Condition: Stable Instructions (If sedation given, give patient instructions): Constipation (DC), High Fiber Diet (ED), Fleet Enema (ED) Additional Instructions: Try to eat more high-fiber foods. Avoid eating dairy. Try taking stool softeners. Is patient prescribed a controlled substance at d/c from ED?: No Referrals: Chucky Graf MD [Primary Care Provider] - 1-2 days Time of Disposition: 21:49
[2020-10-15 20:35] LABS: Basophils % (A) 0 %; Eosinophils # (A) 0.1 k/uL (0-0.7); Eosinophils % (A) 1 %; HCT 44.2 % (39.0-53.0); HGB 14.4 gm/dL (13.0-17.5); Lymphocytes % (A) 42 %; MCH 27.8 pg (25.0-35.0); MCHC 32.6 g/dL (31.0-37.0); MCV 85.4 fL (80.0-100.0); Mean Platelet Volume 6.4; Monocytes # (A) 0.2 k/uL (0-1.0); Monocytes % (A) 5 %; Neutrophils # (A) 2.3 k/uL (1.3-7.7); Neutrophils % (A) 49 %; Platelet Count 266 k/uL (150-450); RBC 5.18 m/uL (4.30-5.90); RDW 12.7 % (11.5-15.5); WBC 4.7 k/uL (3.8-10.6)
[2020-10-15 20:43] LABS: ALT 33 U/L (4-49); AST 28 U/L (17-59); African American GFR (CKD) >90 (>60 ml/min/1.73 sqM); Albumin 4.8 g/dL (3.5-5.0); Alkaline Phosphatase 61 U/L (38-126); Anion Gap 5 mmol/L; Blood Urea Nitrogen 12 mg/dL (9-20); Calcium 9.7 mg/dL (8.4-10.2); Carbon Dioxide 28 mmol/L (22-30); Chloride 104 mmol/L (98-107); Glucose 93 mg/dL (74-99); Non-African American GFR(CKD) >90 (>60 ml/min/1.73 sqM); Potassium 4.3 mmol/L (3.5-5.1); Sodium 137 mmol/L (137-145); Total Bilirubin 1.1 mg/dL (0.2-1.3); Total Protein 7.5 g/dL (6.3-8.2)
--- NOTE | 2020-10-15 20:52 | XR ---
EXAMINATION TYPE: XR KUB DATE OF EXAM: 10/15/2020 COMPARISON: 09/23/2020 HISTORY: Abdominal pain TECHNIQUE: Single view FINDINGS: Bowel gas pattern is normal. There is no sign of intestinal obstruction or pneumoperitoneum . There is no evidence of a mass. Lung bases are clear. There are no pathologic calcifications. There is some fecal material down to the rectum. IMPRESSION: Nonacute abdomen. Increased fecal material compared to old exam.
[2020-10-15 22:10] VITALS: BP 138/72; PULSE 82; RESP 16; TEMP 97.6
== END 2020-10-15 22:05 | disposition home or self-care (01) ==
LOC: EC 19:34
DX: K59.00 Constipation, unspecified (principal); F41.9 Anxiety disorder, unspecified; F90.9 Attention-deficit hyperactivity disorder, unspecified type; F17.200 Nicotine dependence, unspecified, uncomplicated
CPT/HCPCS: 80053; 85025; 74018; 99284; 96374; 96361; J1885; 36415

== ENCOUNTER 2021-01-24 14:40 | Emergency (ER) | payer OTHER ==
[2021-01-24 15:12] VITALS: RESP 20; TEMP 98.2
--- NOTE | 2021-01-24 18:42 | ED ---
General Adult HPI - General Chief complaint: Abdominal Pain Stated complaint: Rectal pain Time Seen by Provider: 01/24/21 18:14 Source: patient, RN notes reviewed Mode of arrival: ambulatory Limitations: no limitations - History of Present Illness Initial comments: 20-year-old black male patient, alert and oriented 4, presents to the emergency room with complaints of rectal pain and pressure for 4 months. Patient states that he was seen at [facility] and prescribed suppository for constipation the patient did not take the suppository. Patient was also prescribed ducolax which he did not take, patient was given prescription for magnesium citrate, states he drank 4 sips then had a bowel movement so he stopped drinking it. Patient denies abdominal pain, hematochezia or hematemesis. Denies any nausea vomiting diarrhea or fever. Patient denies any medical or surgical history, states takes no medication on a daily basis. States has not been sexually active since September, denies penile discharge. Patient has seen his primary care doctor Dr. Graf is given a referral to GI which he has not seen yet. -: month(s) (4) Radiation: non-radiation Associated Symptoms: denies other symptoms - Related Data Home Medications Medication Instructions Recorded Confirmed busPIRone HCL 5 mg PO TID PRN 10/01/20 10/05/20 Azithromycin [Zithromax Z-pack (6 See Taper PO DAILY 10/05/20 10/05/20 tabs)] predniSONE [Deltasone] See Taper PO DAILY 10/05/20 10/05/20 Previous Rx's Medication Instructions Recorded polyethylene glycoL 3350 [Miralax] 17 gm PO DAILY #30 packet 10/06/20 Polyethylene Glycol 3350 [Miralax] 17 gm PO DAILY 14 Days #527 gm 01/24/21 Allergies Allergy/AdvReac Type Severity Reaction Status Date / Time No Known Allergies Allergy Verified 01/24/21 15:12 Review of Systems ROS Statement: Those systems with pertinent positive or pertinent negative responses have been documented in the HPI. ROS Other: All systems not noted in ROS Statement are negative. Past Medical History Past Medical History: No Reported History Additional Past Medical History / Comment(s): constipation History of Any Multi-Drug Resistant Organisms: None Reported Past Surgical History: No Surgical Hx Reported Past Psychological History: ADD/ADHD, Anxiety Smoking Status: Current some day smoker Past Alcohol Use History: None Reported Past Drug Use History: Marijuana General Exam Limitations: no limitations General appearance: alert, in no apparent distress Head exam: Present: atraumatic, normocephalic, normal inspection Eye exam: Present: normal appearance, PERRL, EOMI. Absent: scleral icterus, conjunctival injection, periorbital swelling ENT exam: Present: normal exam, mucous membranes moist Neck exam: Present: normal inspection, full ROM. Absent: tenderness, meningismus, lymphadenopathy Respiratory exam: Present: normal lung sounds bilaterally. Absent: respiratory distress, wheezes, rales, rhonchi, stridor Cardiovascular Exam: Present: tachycardia GI/Abdominal exam: Present: soft, normal bowel sounds. Absent: distended, tenderness, guarding, rebound, rigid Rectal exam: Present: normal inspection, normal rectal tone. Absent: fecal impaction, hemorrhoids, mass, tenderness Neurological exam: Present: alert, oriented X3, CN II-XII intact Psychiatric exam: Present: normal affect, normal mood Skin exam: Present: warm, dry, intact, normal color. Absent: rash Course Vital Signs 01/24/21 15:11 Temperature 98.2 F Pulse Rate 110 H Respiratory 20 Rate Blood Pressure 146/82 O2 Sat by Pulse 98 Oximetry Medical Decision Making - Medical Decision Making Patient having regular bowel movements, today's bowel movement was soft. Abdomen soft and nontender. Patient not vomiting. No fevers. Rectal exam within normal limits, no gross blood. Patient agreeable to going home with a prescription for MiraLAX and following up with his primary care doctor along with a GI consult. Case discussed with Dr. Edward who was agreeable to this plan. Disposition Clinical Impression: Rectal pain, chronic Disposition: HOME SELF-CARE Condition: Good Instructions (If sedation given, give patient instructions): Rectal Pain (ED) Additional Instructions: Take MiraLAX daily, stop MiraLAX if diarrhea occurs. follow-up with the primary care doctor this week. Prescriptions: Polyethylene Glycol 3350 [Miralax] 17 gm PO DAILY 14 Days #527 gm Is patient prescribed a controlled substance at d/c from ED?: No Referrals: Chucky Graf MD [Primary Care Provider] - 1-2 days Anitra Loco MD [STAFF PHYSICIAN] - 1-2 days Time of Disposition: 18:42
[2021-01-24 18:54] VITALS: BP 138/79; PULSE 98
== END 2021-01-24 19:00 | disposition home or self-care (01) ==
LOC: EC 14:40
DX: K62.89 Other specified diseases of anus and rectum (principal); G89.29 Other chronic pain; F17.200 Nicotine dependence, unspecified, uncomplicated; F41.9 Anxiety disorder, unspecified; F90.9 Attention-deficit hyperactivity disorder, unspecified type; F12.90 Cannabis use, unspecified, uncomplicated
CPT/HCPCS: 99283

== ENCOUNTER 2021-01-29 13:45 | Emergency (ER) | payer OTHER ==
[2021-01-29 13:57] VITALS: BP 147/93; PULSE 122; RESP 18; TEMP 98.4
--- NOTE | 2021-01-29 14:43 | ED ---
Abdominal Pain HPI - General Chief Complaint: Abdominal Pain Stated Complaint: Revisit,Poss Tapeworm Time Seen by Provider: 01/29/21 14:06 Source: patient Mode of arrival: ambulatory Limitations: no limitations - History of Present Illness Initial Comments: 20-year-old male presents to the emergency department with a chief complaint of take warm. Patient reports ongoing intermittent abdominal pain with a crampy sensation for about the past 2 months. States he has developed intermittent diarrhea for the past several days. States today he noticed there was "eggs" in his stool sample. He did bring up sample with him. Patient is concerned for tapeworm eggs. He denies any nausea or vomiting or abdominal pain at this time. Denies any fevers or chills. States he has a dog that frequently goes outside and he sleeps with them. Patient denies other complaints. - Related Data Home Medications Medication Instructions Recorded Confirmed busPIRone HCL 5 mg PO TID PRN 10/01/20 10/05/20 Azithromycin [Zithromax Z-pack (6 See Taper PO DAILY 10/05/20 10/05/20 tabs)] predniSONE [Deltasone] See Taper PO DAILY 10/05/20 10/05/20 Previous Rx's Medication Instructions Recorded polyethylene glycoL 3350 [Miralax] 17 gm PO DAILY #30 packet 10/06/20 Polyethylene Glycol 3350 [Miralax] 17 gm PO DAILY 14 Days #527 gm 01/24/21 Allergies Allergy/AdvReac Type Severity Reaction Status Date / Time No Known Allergies Allergy Verified 01/24/21 15:12 Review of Systems ROS Statement: Those systems with pertinent positive or pertinent negative responses have been documented in the HPI. ROS Other: All systems not noted in ROS Statement are negative. Past Medical History Past Medical History: No Reported History Additional Past Medical History / Comment(s): constipation History of Any Multi-Drug Resistant Organisms: None Reported Past Surgical History: No Surgical Hx Reported Past Psychological History: ADD/ADHD, Anxiety Smoking Status: Current some day smoker Past Alcohol Use History: None Reported Past Drug Use History: Marijuana General Exam Limitations: no limitations General appearance: alert, in no apparent distress Head exam: Present: atraumatic, normocephalic, normal inspection Eye exam: Present: normal appearance, PERRL, EOMI Pupils: Present: normal accommodation ENT exam: Present: normal exam, normal oropharynx, mucous membranes moist, TM's normal bilaterally, normal external ear exam Neck exam: Present: normal inspection, full ROM. Absent: tenderness Respiratory exam: Present: normal lung sounds bilaterally. Absent: respiratory distress, wheezes, rales, rhonchi, stridor, chest wall tenderness, accessory muscle use Cardiovascular Exam: Present: regular rate, normal rhythm, normal heart sounds. Absent: systolic murmur, diastolic murmur GI/Abdominal exam: Present: soft. Absent: distended, tenderness, guarding, rebound Extremities exam: Present: normal inspection, full ROM, normal capillary refill. Absent: tenderness, pedal edema, joint swelling Back exam: Present: normal inspection, full ROM. Absent: tenderness, CVA tenderness (R), CVA tenderness (L) Neurological exam: Present: alert, oriented X3 Psychiatric exam: Present: normal affect, normal mood Skin exam: Present: warm, dry, intact, normal color Course Vital Signs 01/29/21 13:55 Temperature 98.4 F Pulse Rate 122 H Respiratory 18 Rate Blood Pressure 147/93 O2 Sat by Pulse 100 Oximetry Medical Decision Making - Medical Decision Making 20-year-old male presents to emergency department with chief complaint of tick born. On physical examination, he has no abdominal tenderness. The sample he brought was a small elliptical shaped object. It appeared to be either a sesame seed or a grain of rice. Gave the patient a prescription order advised the patient to return with a stool sample that will be sent out to her laboratory for testing. for parasites and ova. Also given a collection cup. I gave him a collection cup and advised him to return a stool sample for testing. Strict return parameters were thoroughly discussed with patient was understanding and agreeable. Case discussed with Dr. Edward Disposition Clinical Impression: Diarrhea Disposition: HOME SELF-CARE Condition: Stable Instructions (If sedation given, give patient instructions): Tapeworm Infection (ED) Additional Instructions: Return stool sample. Return to emergency department if symptoms worsen. Is patient prescribed a controlled substance at d/c from ED?: No Referrals: Chucky Graf MD [Primary Care Provider] - 1-2 days Time of Disposition: 14:42
== END 2021-01-29 14:51 | disposition home or self-care (01) ==
LOC: EC 13:45
DX: R19.7 Diarrhea, unspecified (principal); F41.9 Anxiety disorder, unspecified; F17.200 Nicotine dependence, unspecified, uncomplicated; F12.90 Cannabis use, unspecified, uncomplicated
CPT/HCPCS: 99283

== ENCOUNTER 2021-05-03 10:12 | Day surgery (SDC) | payer OTHER ==
[2021-04-18 11:56] VITALS: BMI 19.9
[~2021-05-03 10:12] MED LIST: LACTATED RINGERS 1,000 ML IV SCH; LIDOCAINE 1% (10MG/ML) FOR IV START INTRADERMA PRN
[2021-05-03 12:45] VITALS: TEMP 98.8
[2021-05-03] MEDS ORDERED: PROPOFOL 10 MG/ML 20 ML VIAL IV ONE (13:11)
--- NOTE | 2021-05-03 13:20 | P.PCN ---
Date of Procedure: 05/03/21 Procedure(s) Performed: BRIEF HISTORY: Patient is a 20-year-old pleasant male scheduled for an elective colonoscopy as a part of rectal pain/rectal tenesmus for the last few months duration. He also has chronic constipation but denies any rectal bleeding.. PROCEDURE PERFORMED: Flexible sigmoidoscopy PREOPERATIVE DIAGNOSIS: Acute rectal pain/rectal tenesmus and chronic constipation. IV sedation per Anesthesia. PROCEDURE: After informed consent was obtained, the patient, was brought into the endoscopy unit. IV sedation was administered by Anesthesia under continuous monitoring. Digital rectal examination was normal. Initially the Olympus CF-160 flexible video colonoscope was then inserted in the rectum, gradually advanced into the sigmoid colon and there was significant amount of solid stool noted in this area and hence the procedure was terminated. The visualized portions of the sigmoid colon and rectum appeared normal. Retroflexion was performed in the rectum and no lesions were seen. There was no evidence of colitis noted. The patient tolerated the procedure well. IMPRESSION: Poor prep and hence procedure terminated The visualized portions of the rectum and sigmoid colon appeared normal RECOMMENDATIONS: Findings of this examination were discussed with the patient as well as his family.. At this time he was advised to start on MiraLAX 1 scoop twice daily for the chronic constipation and follow up in office in 3-4 weeks
[2021-05-03 13:31] VITALS: RESP 16
[2021-05-03 13:47] VITALS: BP 105/67; PULSE 60
== END 2021-05-03 14:18 | disposition home or self-care (01) ==
LOC: ORWHC2ENDO 10:12
PROVIDERS: ATTEND Internal Medicine Gastroenterology
DX: K62.89 Other specified diseases of anus and rectum (principal); K59.09 Other constipation; F17.210 Nicotine dependence, cigarettes, uncomplicated; F98.8 Other specified behavioral and emotional disorders with onset usually occurring in childhood and adolescence
CPT/HCPCS: 45330; J2704

== ENCOUNTER 2021-07-22 13:45 | Emergency (ER) | payer OTHER ==
[2021-07-22] MEDS ORDERED: DIPH,PERTUS(ACELL)TETVAC-LF 0.5 ML VIAL IM ONE (14:09)
[2021-07-22] MEDS ORDERED: LIDOCAINE 1% INJ 10MG/ML (20 ML MDV) SQ ONE (14:09)
[2021-07-22 14:10] VITALS: BP 144/84; PULSE 78; RESP 18; TEMP 97.4
--- NOTE | 2021-07-22 14:11 | ED ---
General Adult HPI - General Stated complaint: Left Thumb Laceration Time Seen by Provider: 07/22/21 14:00 Source: patient, RN notes reviewed Mode of arrival: ambulatory Limitations: no limitations - History of Present Illness Initial comments: 20-year-old male presents emergency from chief complaint laceration to his left thumb. Patient states that he was cutting some food (thumb. He is unsure when his last tetanus was. No paresthesias no other complaints. - Related Data Home Medications Medication Instructions Recorded Confirmed No Known Home Medications 04/18/21 05/03/21 Allergies Allergy/AdvReac Type Severity Reaction Status Date / Time No Known Allergies Allergy Verified 07/22/21 14:07 Review of Systems ROS Statement: Those systems with pertinent positive or pertinent negative responses have been documented in the HPI. ROS Other: All systems not noted in ROS Statement are negative. Past Medical History Past Medical History: No Reported History Additional Past Medical History / Comment(s): constipation, OCCASIONAL BLOOD IN STOOL History of Any Multi-Drug Resistant Organisms: None Reported Past Surgical History: No Surgical Hx Reported Past Anesthesia/Blood Transfusion Reactions: No Reported Reaction Additional Past Anesthesia/Blood Transfusion Reaction / Comment(s): FIRST ANESTHETIC Smoking Status: Current some day smoker - Past Family History Mother Family Medical History: No Reported History General Exam General appearance: alert, in no apparent distress Head exam: Present: atraumatic, normocephalic, normal inspection Neck exam: Present: normal inspection, full ROM. Absent: tenderness, meningismus, lymphadenopathy Respiratory exam: Present: normal lung sounds bilaterally. Absent: respiratory distress, wheezes, rales, rhonchi, stridor Cardiovascular Exam: Present: regular rate, normal rhythm, normal heart sounds. Absent: systolic murmur, diastolic murmur, rubs, gallop, clicks Extremities exam: Present: other (Left thumb there is a 1 cm laceration neurovascular intact full range of motion) Course Vital Signs 07/22/21 14:07 Temperature 97.4 F L Pulse Rate 78 Respiratory 18 Rate Blood Pressure 144/84 O2 Sat by Pulse 100 Oximetry Procedures - Laceration Laceration #1 Consent Obtained: verbal consent Indication: laceration Site: hand Size (cm): 1 Description: flap Depth: simple, single layer Anesthetic Used: lidocaine 1%, without epi Anesthesia Technique: local infiltration Amount (mls): 3 Pre-repair: wound explored, irrigated extensively, deep structures intact Type of Sutures: nylon Size of Sutures: 4-0 Number of Sutures: 3 Technique: simple, interrupted Patient Tolerated Procedure: well, no complications Medical Decision Making - Medical Decision Making Tetanus is updated, thumb was repaired with sutures patient tolerated well will be discharged to in stable condition Disposition Clinical Impression: Laceration of left thumb Disposition: HOME SELF-CARE Condition: Stable Instructions (If sedation given, give patient instructions): Care For Your Stitches (ED), Finger Laceration (ED) Additional Instructions: Have sutures removed in 7-10 daysPlease return to the Emergency Department if symptoms worsen or any other concerns. Is patient prescribed a controlled substance at d/c from ED?: No Referrals: Chucky Graf MD [Primary Care Provider] - 1-2 days Time of Disposition: 14:11
[2021-07-22] MEDS ORDERED: BACITRACIN OINT 1 EACH PACKET TOPICAL ONE (14:35)
== END 2021-07-22 14:43 | disposition home or self-care (01) ==
LOC: EC 13:45
DX: S61.012A Laceration without foreign body of left thumb without damage to nail, initial encounter (principal); F17.200 Nicotine dependence, unspecified, uncomplicated; W26.8XXA Contact with other sharp object(s), not elsewhere classified, initial encounter
CPT/HCPCS: 90715; 12001; 90471; 99282; J2001

== ENCOUNTER 2024-01-19 18:37 | Emergency (ER) | payer OTHER ==
--- NOTE | 2024-01-19 18:54 | ED ---
General Adult HPI - General Chief complaint: Chest Pain Stated complaint: Chest pain Time Seen by Provider: 01/19/24 18:50 Source: patient Mode of arrival: ambulatory Limitations: no limitations - History of Present Illness Initial comments: Patient presents to the ED complaining of having left lateral chest/thoracic back pain for the past 2 days or so. Patient states that his pain is worse with palpation. Patient states that he is unsure if he may have injured himself at work lifting something. Patient denies fall or direct trauma. Patient denies fever or chills, headache, focal neuro deficit, neck/arm/jaw pain, dyspnea, cough or cold symptoms, palpitations, dizziness, abdominal pain, nausea/vomiting, dysuria/hematuria/urinary frequency/urinary symptoms, leg or calf swelling or pain, or any other symptoms or complaints. - Related Data Home Medications Medication Instructions Recorded Confirmed No Known Home Medications 04/18/21 05/03/21 Allergies Allergy/AdvReac Type Severity Reaction Status Date / Time No Known Allergies Allergy Verified 01/19/24 18:48 Review of Systems ROS Statement: Those systems with pertinent positive or pertinent negative responses have been documented in the HPI. ROS Other: All systems not noted in ROS Statement are negative. Past Medical History Past Medical History: No Reported History Additional Past Medical History / Comment(s): constipation, OCCASIONAL BLOOD IN STOOL History of Any Multi-Drug Resistant Organisms: None Reported Past Surgical History: No Surgical Hx Reported Past Anesthesia/Blood Transfusion Reactions: No Reported Reaction Additional Past Anesthesia/Blood Transfusion Reaction / Comment(s): FIRST ANESTHETIC Past Psychological History: ADD/ADHD, Anxiety Smoking Status: Former smoker Past Alcohol Use History: None Reported Past Drug Use History: Marijuana - Past Family History Mother Family Medical History: No Reported History General Exam Limitations: no limitations General appearance: alert, in no apparent distress Eye exam: Present: normal appearance ENT exam: Present: mucous membranes moist Neck exam: Present: other (Trachea is in midline) Respiratory exam: Present: normal lung sounds bilaterally, other (Mild left lateral chest wall tenderness; no crepitation or deformity is appreciated). Absent: respiratory distress, wheezes, rales, rhonchi, stridor Cardiovascular Exam: Present: regular rate, normal rhythm, normal heart sounds, other (Normal radial pulses bilaterally) GI/Abdominal exam: Present: soft. Absent: distended, tenderness, guarding Extremities exam: Present: other (Negative Homans' sign bilaterally). Absent: tenderness, pedal edema, calf tenderness Back exam: Present: normal inspection, other (Mild left thoracic back tenderness). Absent: CVA tenderness (R), CVA tenderness (L) Neurological exam: Present: alert, oriented X3. Absent: motor sensory deficit Skin exam: Present: warm, dry, normal color Course Vital Signs 01/19/24 18:42 Temperature 98.4 F Pulse Rate 68 Respiratory 18 Rate Blood Pressure 109/62 O2 Sat by Pulse 98 Oximetry - Reevaluation(s) Reevaluation #1: 01/19/24 21:36 Patient remains alert and breathing comfortably. Patient denies development of any new pain or symptoms while in the ED. Patient is aware of his negative x- ray report, and he feels comfortable being discharged home at this time. Patient was counseled about chest wall pain and back pain. Patient was clearly explained return and follow-up instructions. He was instructed to follow-up closely with his primary care provider. He feels comfortable with this plan. Medical Decision Making - Medical Decision Making Was pt. sent in by a medical professional or institution (, PA, [employer], urgent care, hospital, or intermediate...) When possible be specific @ -No Did you speak to anyone other than the patient for history (EMS, parent, family, police, friend...)? What history was obtained from this source @ -No Did you review nursing and triage notes (agree or disagree)? Why? @ -I reviewed and agree with nursing and triage notes Were old charts reviewed (outside hosp., previous admission, EMS record, old EKG, old radiological studies, urgent care reports/EKG's, intermediate records)? Report findings @ -No old charts were reviewed Differential Diagnosis (chest pain, altered mental status, abdominal pain women, abdominal pain men, vaginal bleeding, weakness, fever, dyspnea, syncope, headache, dizziness, GI bleed, back pain, seizure, CVA, palpatations, mental health, musculoskeletal)? @ -Chest pain, chest wall pain, back pain, muscle strain, muscle spasm, pleurisy, pneumothorax, GERD EKG interpreted by me (3pts min.). @ -None done X-rays interpreted by me (1pt min.). @ -Left ribs/chest x-ray was reviewed myself and shows no acute abnormality. I agree with the radiologist's interpretation as above. CT interpreted by me (1pt min.). @ -None done U/S interpreted by me (1pt. min.). @ -None done What testing was considered but not performed or refused? (CT, X-rays, U/S, labs)? Why? @ -None What meds were considered but not given or refused? Why? @ -None Did you discuss the management of the patient with other professionals (professionals i.e. , PA, [employer], lab, RT, psych nurse, social security benefits interviewer, online marketing strategist, teacher, security officers and guards, bottle caser)? Give summary @ -No Was smoking cessation discussed for >3mins.? @ -No Was critical care preformed (if so, how long)? @ -No Were there social determinants of health that impacted care today? How? (Homelessness, low income, unemployed, alcoholism, drug addiction, transportation, low edu. Level, literacy, decrease access to med. care, senior care, rehab)? @ -No Was there de-escalation of care discussed even if they declined (Discuss DNR or withdrawal of care, Hospice)? DNR status @ -No What co-morbidities impacted this encounter? (DM, HTN, Smoking, COPD, CAD, Cancer, CVA, ARF, Chemo, Hep., AIDS, mental health diagnosis, sleep apnea, morbid obesity)? @ -None Was patient admitted / discharged? Hospital course, mention meds given and rout e, prescriptions, significant lab abnormalities, going to OR and other pertinent info. @ -[Patient is alert and breathing comfortably in the ED. Patient's left ribs/chest x-rays are negative. Patient reports that his pain is worse with palpation, and his pain is reproducible with palpation on examination in the ED. I suspect that this patient's pain is likely musculoskeletal in etiology, and I do not suspect an emergent medical condition at this time. Will discharge patient home at this time. Strict return instructions were provided. @ -No Drug Therapy requiring intensive monitoring for toxicity (Heparin, Nitro, Insulin, Cardizem)? @ -No Were any procedures done? @ -No Diagnosis/symptom? @ -Left chest wall/thoracic back pain Acute, or Chronic, or Acute on Chronic? @ -Acute Uncomplicated (without systemic symptoms) or Complicated (systemic symptoms)? @ -Default Side effects of treatment? @ -No Exacerbation, Progression, or Severe Exacerbation? @ -No Poses a threat to life or bodily function? How? (Chest pain, [place], [place], pneumonia, PE, COPD, DKA, ARF, appy, cholecystitis, CVA, Diverticulitis, Homicidal, Suicidal, threat to staff... and all critical care pts) @ -No - Radiology Data Left ribs/chest x-ray: Negative study. Disposition Clinical Impression: Chest wall pain, Thoracic back pain Disposition: HOME SELF-CARE Condition: Stable Instructions (If sedation given, give patient instructions): Back Pain (ED), Chest Wall Pain (ED) Additional Instructions: Return to the ER immediately should you develop new or worsening pain, shortness of breath, feeling dizzy or faint, or new or worsening symptoms. Follow-up closely with your primary care provider. Is patient prescribed a controlled substance at d/c from ED?: No Referrals: Chucky Graf MD [Primary Care Provider] - 1-2 days Time of Disposition: 21:39
[2024-01-19 19:49] VITALS: RESP 18; TEMP 98.4
--- NOTE | 2024-01-19 21:15 | XR ---
EXAMINATION TYPE: XR ribs LT w pa chest xray DATE OF EXAM: 01/19/2024 COMPARISON: NONE HISTORY: Pain TECHNIQUE: Single view of the chest 3 views of the ribs are submitted. FINDINGS: The lungs are clear. No Evidence for pneumothorax. No evidence for focal contusion. Medi astinal structures are midline. Evaluation of the ribs fails to demonstrate evidence for displaced r ib fracture or secondary sign of rib fracture. IMPRESSION: Negative study
[2024-01-19 22:31] VITALS: BP 136/73; PULSE 66
== END 2024-01-19 21:47 | disposition home or self-care (01) ==
LOC: EC 18:37
DX: R07.89 Other chest pain (principal); M54.6 Pain in thoracic spine; Z87.891 Personal history of nicotine dependence
CPT/HCPCS: 99285

== ENCOUNTER 2024-09-01 21:31 | Emergency (ER) | payer OTHER ==
[2024-09-01 21:36] VITALS: BP 132/81; PULSE 85; RESP 18; TEMP 98.8
--- NOTE | 2024-09-01 22:14 | ED ---
Skin/Abscess/FB HPI - General Chief complaint: Skin/Abscess/Foreign Body Stated complaint: Chemical Burn Head Time Seen by Provider: 09/01/24 21:51 Source: patient, RN notes reviewed Mode of arrival: ambulatory Limitations: no limitations - History of Present Illness Initial comments: 23-year-old male presenting to the ER with chief complaint of scalp irritation x 1 week. Patient states 1 week ago he dyed his hair at home with box dye. States when he washed out the diet he began to feel itching and irritation on his scalp. He has been putting Vaseline in his scalp with little relief. Denies fever, chills, nausea, vomiting, drainage, lip or tongue swelling. - Related Data Previous Rx's Medication Instructions Recorded predniSONE [Deltasone] 40 mg PO DAILY #10 tab 09/01/24 Allergies Allergy/AdvReac Type Severity Reaction Status Date / Time No Known Allergies Allergy Verified 09/01/24 21:33 Review of Systems ROS Statement: Those systems with pertinent positive or pertinent negative responses have been documented in the HPI. ROS Other: All systems not noted in ROS Statement are negative. Past Medical History Past Medical History: No Reported History Additional Past Medical History / Comment(s): constipation, OCCASIONAL BLOOD IN STOOL History of Any Multi-Drug Resistant Organisms: None Reported Past Surgical History: No Surgical Hx Reported Past Anesthesia/Blood Transfusion Reactions: No Reported Reaction Additional Past Anesthesia/Blood Transfusion Reaction / Comment(s): FIRST ANESTHETIC Past Psychological History: ADD/ADHD, Anxiety Smoking Status: Former smoker Past Alcohol Use History: None Reported Past Drug Use History: Marijuana - Past Family History Mother Family Medical History: No Reported History General Exam Limitations: no limitations General appearance: alert, in no apparent distress Head exam: Present: atraumatic, normocephalic, other (Erythema present throughout scalp, no drainage or blistering) Eye exam: Present: normal appearance, PERRL, EOMI. Absent: scleral icterus, conjunctival injection, periorbital swelling ENT exam: Present: normal exam, mucous membranes moist Neck exam: Present: normal inspection. Absent: tenderness, meningismus, lymphadenopathy Respiratory exam: Present: normal lung sounds bilaterally. Absent: respiratory distress, wheezes, rales, rhonchi, stridor Cardiovascular Exam: Present: regular rate, normal rhythm, normal heart sounds. Absent: systolic murmur, diastolic murmur, rubs, gallop, clicks Neurological exam: Present: alert, oriented X3 Psychiatric exam: Present: normal affect, normal mood Skin exam: Present: warm, dry, intact, normal color. Absent: rash Course Vital Signs 09/01/24 21:33 Temperature 98.8 F Pulse Rate 85 Respiratory 18 Rate Blood Pressure 132/81 O2 Sat by Pulse 100 Oximetry Medical Decision Making - Medical Decision Making Was pt. sent in by a medical professional or institution (WADE Enriquez, SUBCONTRACT ADMINISTRATOR, urgent care, hospital, or long term...) When possible be specific @ -No Did you speak to anyone other than the patient for history (EMS, parent, family, police, friend...)? What history was obtained from this source @ -No Did you review nursing and triage notes (agree or disagree)? Why? @ -I reviewed and agree with nursing and triage notes Were old charts reviewed (outside hosp., previous admission, EMS record, old EKG, old radiological studies, urgent care reports/EKG's, long term records)? Report findings @ -No old charts were reviewed Differential Diagnosis (chest pain, altered mental status, abdominal pain women, abdominal pain men, vaginal bleeding, weakness, fever, dyspnea, syncope, headache, dizziness, GI bleed, back pain, seizure, CVA, palpatations, mental health, musculoskeletal)? @ -Burn, contact dermatitis, cellulitis, allergic reaction, eczema EKG interpreted by me (3pts min.). @ -None X-rays interpreted by me (1pt min.). @ -None done CT interpreted by me (1pt min.). @ -None done U/S interpreted by me (1pt. min.). @ -None done What testing was considered but not performed or refused? (CT, X-rays, U/S, labs)? Why? @ -None What meds were considered but not given or refused? Why? @ -None Did you discuss the management of the patient with other professionals (professionals i.e. WADE Enriquez, SUBCONTRACT ADMINISTRATOR, lab, RT, psych nurse, social media senior associate, aluminum boat assembly supervisor, teacher, landing signal officer, bottle caser)? Give summary @ -No Was smoking cessation discussed for >3mins.? @ -No Was critical care preformed (if so, how long)? @ -No Were there social determinants of health that impacted care today? How? (Homelessness, low income, unemployed, alcoholism, drug addiction, transportation, low edu. Level, literacy, decrease access to med. care, detention, rehab)? @ -No Was there de-escalation of care discussed even if they declined (Discuss DNR or withdrawal of care, Hospice)? DNR status @ -No What co-morbidities impacted this encounter? (DM, HTN, Smoking, COPD, CAD, Cancer, CVA, ARF, Chemo, Hep., AIDS, mental health diagnosis, sleep apnea, morbid obesity)? @ -None Was patient admitted / discharged? Hospital course, mention meds given and route, prescriptions, significant lab abnormalities, going to OR and other pertinent info. @ -Discharged. This is a 23-year-old male with scalp irritation x 1 week status post using box dye on his hair. No red flag symptoms, sign of burn or bacterial infection. Patient was given oral steroids. Supportive care discussed. Discussed appropriate return parameters and follow-up care. All questions answered at bedside. Case was discussed with my ED attending Dr. Blankenship. Undiagnosed new problem with uncertain prognosis? @ -No Drug Therapy requiring intensive monitoring for toxicity (Heparin, Nitro, Insulin, Cardizem)? @ -No Were any procedures done? @ -No Diagnosis/symptom? @ -Contact dermatitis Acute, or Chronic, or Acute on Chronic? @ -Acute Uncomplicated (without systemic symptoms) or Complicated (systemic symptoms)? @ -Uncomplicated Side effects of treatment? @ -No Exacerbation, Progression, or Severe Exacerbation? @ -No Poses a threat to life or bodily function? How? (Chest pain, [place], [place], pneumonia, PE, COPD, DKA, ARF, appy, cholecystitis, CVA, Diverticulitis, Homicidal, Suicidal, threat to staff... and all critical care pts) @ -No Disposition Clinical Impression: Contact dermatitis Disposition: HOME SELF-CARE Condition: Stable Instructions (If sedation given, give patient instructions): Contact Dermatitis (ED) Additional Instructions: Start prednisone tomorrow. You can purchase a steroid shampoo [id number] and use once daily until symptoms improve. Please return to the Emergency Department if symptoms worsen or any other concerns. Prescriptions: predniSONE [Deltasone] 40 mg PO DAILY #10 tab Is patient prescribed a controlled substance at d/c from ED?: No Referrals: Chucky Graf MD [Primary Care Provider] - 1-2 days Time of Disposition: 22:14
[2024-09-01] MEDS: predniSONE 50 MG TAB PO STA (22:25)
== END 2024-09-01 22:26 | disposition home or self-care (01) ==
LOC: EC 21:31
DX: L25.9 Unspecified contact dermatitis, unspecified cause (principal); Z87.891 Personal history of nicotine dependence
CPT/HCPCS: 99283; J7512